=== PATIENT | male | born 2000 | race Hispanic/Latino ===

== ENCOUNTER 2024-01-24 23:06 | Emergency (ER) | payer SELFPAY ==
--- NOTE | ~2024-01-24 | XR_ITS ---
Clinical Indication: Chest pressure PA and lateral views of the chest: Comparison: None Findings: The lungs are clear, without evidence of focal consolidation or pleural effusion. Cardiome diastinal silhouette is within normal limits. Bones and soft tissues are unremarkable. Impression: Normal chest. Reviewed, dictated and finalized at location . [employer] Impression: Normal chest.
[2024-01-24 23:34] VITALS: BP 151/83; PULSE 80; RESP 16; TEMP 37; O2SAT 100
--- NOTE | 2024-01-24 23:40 | ECG_ITS ---
Test Date: 2024-01-24 23:45:32 Measurements Intervals [place] Rate: 71 P: 64 NH: 137 QRS: 66 QRSD: 89 T: 51 QT: 345 QTc: 377 Interpretive Statements SINUS RHYTHM BASELINE ARTIFACT- I, III, AVL NORMAL ECG No previous ECG available for comparison Electronically Signed On 01-25-2024 06:27:51 [employer] by Mario Fallon D.O.
[2024-01-25 02:34] LABS: Basophils Absolute Auto 0.1 K/mm3 (0.0-0.1); Basophils Percent Auto 0.8 % (0.2-1.2); Eosinophils Percent Auto 0.4 % (0-4.4); Hematocrit 44.7 % (42.0-52.0); Hemoglobin 14.8 g/dL (14.0-18.0); Immature Granulocyte Absolute 0.02 K/mm3 (0.00-0.031); Immature Granulocyte Percent A 0.3 % (0-0.5); Lymphocytes Absolute Auto 1.71 K/mm3 (0.9-3.2); Lymphocytes Percent Auto 22.7 % (18.3-44.2); Mean Corpuscular HGB Conc 33.1 g/dl (32-36); Mean Corpuscular Hemoglobin 29.8 pg (26-34); Mean Corpuscular Volume 90.1 fl (80-100); Mean Platelet Volume 10.2 fl (7.4-10.4); Monocytes Absolute Auto 0.5 K/mm3 (0.1-0.6); Monocytes Percent Auto 7.2 % (2.6-8.5); Neutrophils Absolute Auto 5.2 K/mm3 (1.3-6.7); Neutrophils Percent Auto 68.6 % (45.5-73.1); Platelet Count Result 225 k/mm3 (150-375); Red Blood Count 4.96 M/mm3 (4.6-6.20); Red Cell Distribution Width 12.3 % (11.5-14.5); White Blood Count 7.5 K/mm3 (4.5-10.0)
[2024-01-25 02:40] VITALS: BP 153/89; PULSE 87; RESP 20; TEMP 36.4; O2SAT 100
[2024-01-25 02:45] LABS: Alanine Aminotransferase 25 U/L (6-50); Albumin Level 4.8 g/dL (3.5-5.1); Alkaline Phosphatase 92 U/L (38-126); Anion Gap 10 mmol/L (4-12); Aspartate Amino Transferase 20 U/L (17-59); Bilirubin,Total 0.8 mg/dL (0.2-1.3); Blood Urea Nitrogen 13 mg/dL (9-20); Calcium 9.3 mg/dL (8.4-10.2); Carbon Dioxide 25 mmol/L (22-30); Chloride 105 mmol/L (98-107); Estimated Glomerular Filt Rate > 60; Glucose 115 mg/dL (65-110); Lipase 44 U/L (23-300); Potassium 4.2 mmol/L (3.4-5.0); Sodium 140 mmol/L (137-145)
[2024-01-25 02:49] LABS: Prothrombin Time 13.9 Seconds (11.1-14.7)
[2024-01-25 02:50] LABS: Partial Thromboplastin Time 29.5 Seconds (22.3-36.8)
[2024-01-25 02:55] LABS: Troponin I < 0.012 ng/mL (0.000-0.034)
--- NOTE | 2024-01-25 02:55 | ED.GENADULT ---
HPI - General Adult General Chief complaint: Unspecified Stated complaint: blood pressure Time Seen by Provider: 01/25/24 02:54 Source: patient and family Mode of arrival: ambulatory Limitations: language barrier (Massimo #[id number]) History of Present Illness HPI narrative: Patient presents with unclear complaints/concern. In triage, interpretive services were used and patient stated that he felt desperate. He continued to say similar with initial brief nursing screen in room with questionnaire. No history of anxiety but recent stressors. When asked about any previous diagnosis of hypertension he states he was previously told this once. On my exam using translation services, he states I felt desperate, restless. He states the symptoms started yesterday afternoon. He cleaned the bathroom and than when he went to do another task he started having these symptoms including starting to worry. 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 He notes that he briefly felt short of breath but that resolved. He states in general his symptoms are better now. There has been notation chest pain as well but patient denies this when I ask. He states he has had bilateral hand weakness and tingling since yesterday. He had a sense of impending doom. Denies suicidal ideation, homicidal ideation, auditory or visual hallucinations. He cannot say if he has been experiencing palpitations but he did seem aware of his heartbeat. He denied any vision changes. States he can't sleep, was only able to get 2 hours last night. Patient does not have a primary care physician. 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 HEAD: Normocephalic, atraumatic. EYES: Non injected, non icteric ENT: Nares clear, no rhinorrhea or epistaxis. NECK: Supple. CHEST: Speaking in full sentences. No respiratory distress. HEART: Regular rate and rhythm. . ABDOMEN: Soft, nondistended. EXTREMITIES: Normal range of motion. No lower extremity edema. SKIN: Warm, dry, no rash. NEURO: No focal deficits. Alert and oriented x3. No abnormal movements appreciated. Not tremulous. PSYCH: Congruent mood and affect. Denies suicidal ideation, homicidal ideation or auditory or visual hallucinations. Appearance: Well kempt. Behavior: intermittent eye contact. Mood: I felt desperate. Course Vital Signs Vital signs: Vital Signs Temperature 98.6 F 01/24/24 23:34 Pulse Rate 80 01/24/24 23:34 Respiratory Rate 16 01/24/24 23:34 Blood Pressure 151/83 H 01/24/24 23:34 Pulse Oximetry 100 01/24/24 23:34 Oxygen Delivery Room Air 01/24/24 23:34 Temperature 97.6 F 01/25/24 02:40 Pulse Rate 87 01/25/24 02:40 Respiratory Rate 20 01/25/24 02:40 Blood Pressure 153/89 H 01/25/24 02:40 Pulse Oximetry 100 01/25/24 02:40 Oxygen Delivery Room Air 01/24/24 23:34 Medical Decision Making MDM Narrative Medical decision making narrative: Patient presents with unclear concerns/complaints. He states I felt desperate/restless. Had difficulty sleeping last night and notes that he felt worried yesterday and had a sense of impending doom. Better now. In the emergency department he is afebrile with vital signs that show hypertension. Multiple attempts were made to try to elucidate patient's symptoms both today, yesterday, and in the immediate past. Patient denies suicidal ideation, homicidal ideation, and auditory or visual hallucinations. Performed IDA-7 questionnaire: 4 points (+1 becoming easily annoyed or irritable, +1 worrying too much about different things, +1 not being able to stop or control worrying, +1 feeling nervous, anxious or on edge). Symptoms have made things somewhat difficult. Does not meet criteria for anxiety disorder. Given that workup is otherwise unremarkable have low suspicion for an acute emergent process. Patient discharged home I advised follow-up in the outpatient setting with primary care physician. Advised reassessment regarding patient's elevated blood pressure today to see if patient should be on medication for hypertension. Differential Diagnosis Differential Diagnosis: Anxiety -generalized anxiety disorder or otherwise/panic attack, symptomatic anemia; considered chemical/environmental exposure (e.g. chloride or other cleaning supplies) Vital Signs Vital Signs: Vital Signs Temperature 98.6 F 01/24/24 23:34 Pulse Rate 80 01/24/24 23:34 Respiratory Rate 16 01/24/24 23:34 Blood Pressure 151/83 H 01/24/24 23:34 Pulse Oximetry 100 01/24/24 23:34 Oxygen Delivery Room Air 01/24/24 23:34 Temperature 97.6 F 01/25/24 02:40 Pulse Rate 87 01/25/24 02:40 Respiratory Rate 20 01/25/24 02:40 Blood Pressure 153/89 H 01/25/24 02:40 Pulse Oximetry 100 01/25/24 02:40 Oxygen Delivery Room Air 01/24/24 23:34 Lab Data 01/25/24 02:24 01/25/24 02:24 Labs: Lab Results 01/25/24 Range/Units 02:24 WBC 7.5 (4.5-10.0) K/mm3 RBC 4.96 (4.6-6.20) M/mm3 Hgb 14.8 (14.0-18.0) g/dL Hct 44.7 (42.0-52.0) % MCV 90.1 (80-100) fl MCH 29.8 (26-34) pg MCHC 33.1 (32-36) g/dl RDW 12.3 (11.5-14.5) % Plt Count 225 (150-375) k/mm3 MPV 10.2 (7.4-10.4) fl Immature Gran % (Auto) 0.3 (0-0.5) % Neut % (Auto) 68.6 (45.5-73.1) % Lymph % (Auto) 22.7 (18.3-44.2) % Gray % (Auto) 7.2 (2.6-8.5) % Eos % (Auto) 0.4 (0-4.4) % Baso % (Auto) 0.8 (0.2-1.2) % Lymph # (Auto) 1.71 (0.9-3.2) K/mm3 Gray # (Auto) 0.5 (0.1-0.6) K/mm3 Eos # (Auto) 0.0 (0-0.3) K/mm3 Baso # (Auto) 0.1 (0.0-0.1) K/mm3 Abs Immat Gran (auto) 0.02 (0.00-0.031) K/mm3 Absolute Neuts (auto) 5.2 (1.3-6.7) K/mm3 Absolute Nucleated RBC 0.000 (0.0-0.012) K/mm3 Nucleated RBC % 0.0 (0.0-0.2) % PT 13.9 (11.1-14.7) Seconds INR 1.0 APTT 29.5 (22.3-36.8) Seconds Sodium 140 (137-145) mmol/L Potassium 4.2 (3.4-5.0) mmol/L Chloride 105 (98-107) mmol/L Carbon Dioxide 25 (22-30) mmol/L Anion Gap 10 (4-12) mmol/L BUN 13 (9-20) mg/dL Creatinine 0.80 (0.7-1.3) mg/dL Estim Creat Clear Calc Not Reportable Estimated GFR > 60 (59 - ) Glucose 115 H (65-110) mg/dL Calcium 9.3 (8.4-10.2) mg/dL Total Bilirubin 0.8 (0.2-1.3) mg/dL AST 20 (17-59) U/L ALT 25 (6-50) U/L Alkaline Phosphatase 92 (38-126) U/L Troponin I < 0.012 (0.000-0.034) ng/mL Total Protein 8.0 (6.3-8.2) g/dL Albumin 4.8 (3.5-5.1) g/dL Lipase 44 (23-300) U/L Imaging Data Radiologist's impression: Impressions Chest X-Ray 01/25/24 05:56 Impression: Normal chest. ECG Data EKG #1: Attestation: I personally reviewed and interpreted this ECG as follows: ECG completion date: 01/24/24 ECG completion time: 23:45 Interpretation: Normal sinus rhythm at a rate of 71 beats per minute. [place] interval 137. QRS 89. QT/QTC 345/368. Good R-wave progression across the precordial leads. No T-wave inversions. Normal axis. Normal ECG Discharge Plan Discharge Clinical Impression: Restless, Feeling worried Hypertension Qualifiers: Hypertension type: unspecified Qualified Code(s): I10 - Essential (primary) hypertension Patient Disposition: Home, Self-Care Condition: Stable Instructions: Antibiotic Form, Hypertension (ED), Anxiety (ED) Additional Instructions: Your workup has not revealed a clear cause of your symptoms. Your chest x-ray, EKG, and labs were okay. It is possible that you have a slight degree of generalized anxiety disorder but don't seem to meet all of the criteria right now. I recommend you follow up with a primary care physician. Because you do not have one, the name of a doctor is listed below. Your blood pressure was elevated but that can be due to a variety of reasons. Recommend following up with the primary care physician to see if this continues and if you are diagnosed with hypertension if you need to be on blood pressure medication Alternatively, there is a provider that speaks [place] if you prefer though I do not know if they are accepting patients. Her name is Nasima Chris ([phone]). Patient Language: [place] Follow-up/Referrals: Negin Henriquez DO [Physician] - (Family practice) PHYSICIAN,[employer] [Primary Care Provider] - Stand Alone Forms: Work/School Release IP Time of Disposition: 03:33
== END 2024-01-25 03:48 | disposition home or self-care (01) ==
LOC: ANHED 01-25 03:44
PROVIDERS: Emergency Provider Student in an Organized Health Care Education/Training Program
DX: R45.1 Restlessness and agitation (principal); I10 Essential (primary) hypertension
CPT/HCPCS: 36415; 71046; 80053; 83690; 84484; 85025; 85610; 85730; 93005; 99284